=== PATIENT | female | born 1955 | race African-American/Black ===

== ENCOUNTER 2019-02-07 10:37 | Observation (INO) | payer MEDICARE, MEDICAID ==
[~2019-02-07] VITALS: Ht 157.5 cm; Wt 86.3 kg
[~2019-02-07 10:37] MED LIST: ASPIRIN325 MG OR; GENTAMICIN0.31 OP; LISINOP/HCTZ1 TA1 OR; LISINOP/HCTZ1 TA1 PO; LISINOP/HCTZ1 TA2 PO; METOPROL TAR25 MG PO; VASERETIC1 TAB OR; [UNRECOGNIZED DRUG - OTHER]
--- NOTE | 2019-02-07 10:45 | NUR ---
PT TO ROOM VIA EMS
[2019-02-07] MEDS ORDERED: NORVASC5 M1 PO (10:54)
[2019-02-07] MEDS ORDERED: HYDROCHLOROTH12.5 MG PO (10:56)
[2019-02-07] MEDS ORDERED: LIPITOR20 M1 PO (10:57)
[2019-02-07] MEDS ORDERED: BAYER ASPIRIN E81 MG PO (10:57)
[2019-02-07] MEDS ORDERED: LISI20TA5 PO (10:58)
--- NOTE | 2019-02-07 11:03 | NUR ---
PT RESTING ON STRETCHER; NO S/S OF DISTRESS NOTED; PT DENIES CP, SOB, OR ANY COMPLAINTS; MONITORING DEVICES APPLIED; RHYTHM READING SB IN THE 40s; MD AWARE; PT DENIES ANY NEEDS AT THIS TIME; PT AOX3; DENIES RECENT ILLNESS OR CHANGE IN MEDICATIONS RECENTLY; WAS VISITING DR CROW AT [facility] TODAY FOR LAB RESULTS FOR [facility]; CALL LIGHT WITHIN REACH; WILL CONTINUE TO MONITOR
[2019-02-07 11:20] LABS: HEMATOCRIT 41.7 % (37.0-47.0); HEMOGLOBIN 13.2 g/dl (12.0-16.0); IMMATURE GRANULOCYTES 0.2 % (0.0-5.0); MEAN CELL VOLUME 93.9 fL CALC (80.0-100.0); MEAN CORPUSCULAR HGB 29.7 pG CALC (26.0-32.0); MEAN CORPUSCULAR HGB CONC 31.7 g/L CALC (32.0-36.0); NEUT# 1.4 thou/uL (2.00-7.15); RED BLOOD COUNT 4.44 mill/uL (4.20-5.60); RED CELL DISTRI WIDTH 13.2 % (11.5-15.5)
[2019-02-07 11:24] LABS: ANION GAP 14 (6-22 (CALC)); BUN 17 mg/dL (8-23); BUN/CREATININE RATIO 28 (12-20 (CALC)); CARBON DIOXIDE 30 mmol/l (22-30); CHLORIDE 99 mmol/l (95-108); CREATININE 0.6 mg/dL (0.5-1.0); GFR > 60 ML/MIN (>=60 (CALC)); GFR FOR AFR.AMER. > 60 ML/MIN (>=60 (CALC)); SODIUM 140 mmol/l (137-146)
--- NOTE | 2019-02-07 12:01 | NUR ---
PT RESTING ON STRETCHER; NO S/S OF DISTRESS NOTED; VSS; PT DENIES ANY CP, OR SOB; PT UPDATED ON POC; MEDICATED PER MAR; PT TOLERATING WELL; HR CONTINUES SB 40s; MD AWARE CALL LIGHT WITHIN REACH WILL CONTINUE TO MONITOR
--- NOTE | 2019-02-07 12:49 | NUR ---
PT RESTING ON STRETCHER; NO S/S OF DISTRESS NOTED; CONTINUED SB; PT ASYMPTOMATIC; IV KCL INFUSING; PT TOLERATING WELL; DENIES ANY NEEDS AT THIS TIME; WILL CONTINUE TO MONITOR
--- NOTE | 2019-02-07 14:18 | NUR ---
REPORT CALLED TO Anita ALLEN ON [facility]
--- NOTE | 2019-02-07 14:30 | NUR ---
PT TRANSPORTED TO [facility] VIA STRETCHER. PT TOLERATED TRANSFER WELL
--- NOTE | 2019-02-07 14:31 | NUR ---
RECEIVED FROM ER VIA STRETCHER INTO ROOM 261. ADMISSION WEIGHT ON STANDING SCALE 190.4#. ORIENTED TO SURROUNDINGS. CALL NAVARRO IN PLACE.
--- NOTE | 2019-02-07 14:45 | NUR ---
RESTING IN BED. DENIES ANY PAIN OR DISCOMFORTS. ADMISSION ASSESSMENT COMPLETED. VSS. AFEBRILE. RESP NO-LABORED, LUNGS CLEAR THROUGHOUT. SALINE LOCK IN RAC AND LH BOTH SITES BENIGN. PLACED ON APPLICATIONS ADMINISTRATOR. DISCUSSED PLAN OF CARE. NO NEEDS IDENTIFIED AT THIS TIME.
[2019-02-07 14:47] VITALS: BP 139/49
--- NOTE | 2019-02-07 19:02 | NUR ---
REPORT RECEIVED FROM HERBERTH ARZATE. PT RESTING IN BED, NO S/S OF DISTRESS AT THIS TIME. SAFETY PRECAUTIONS IN PLACE. WILL CONTINUE TO MONITOR.
[2019-02-07 19:12] VITALS: BP 119/66
--- NOTE | 2019-02-07 20:20 | NUR ---
PT RESTING IN BED. ALERT AND ORIENTED. RESPIRATIONS EVEN AND UNLABORED ON RA, LUNGS SOUND CLEAR. PEDAL PULSES STRONG. PT DENIES ANY PAIN OR DISCOMFORT AT THIS TIME. TELE IN PLACE. # 20 RAC APPEARS HEALTHY AND PATENT. PT ENCOURAGED TO USE CALL NAVARRO IF ANY NEEDS SHOULD ARISE, CALL NAVARRO WITHIN REACH. WILL CONTINUE TO MONITOR.
[2019-02-07 23:56] VITALS: BP 106/58
--- NOTE | 2019-02-08 00:10 | NUR ---
PT RESTING IN BED. TELE IN PLACE. NO S/S OF DISTRESS AT THIS TIME. CALL NAVARRO WITHIN REACH. WILL CONTINUE TO MONITOR.
--- NOTE | 2019-02-08 04:25 | NUR ---
PT RESTING IN BED. TELE IN PLACE. PT DENIES ANY NEEDS AT THIS TIME. CALL NAVARRO WITHIN REACH GABBY CONTINUE TO MONITOR
[2019-02-08 04:32] VITALS: BP 125/61
[2019-02-08 05:08] LABS: HEMATOCRIT 38.6 % (37.0-47.0); IMMATURE GRANULOCYTES 0.2 % (0.0-5.0); MEAN CELL VOLUME 94.6 fL CALC (80.0-100.0); MEAN CORPUSCULAR HGB 29.4 pG CALC (26.0-32.0); MEAN CORPUSCULAR HGB CONC 31.1 g/L CALC (32.0-36.0); NEUT# 1.71 thou/uL (2.00-7.15); RED BLOOD COUNT 4.08 mill/uL (4.20-5.60); RED CELL DISTRI WIDTH 13.3 % (11.5-15.5)
[2019-02-08 05:31] LABS: ANION GAP 13 (6-22 (CALC)); BUN 14 mg/dL (8-23); BUN/CREATININE RATIO 26 (12-20 (CALC)); CARBON DIOXIDE 25 mmol/l (22-30); CHLORIDE 104 mmol/l (95-108); CREATININE 0.5 mg/dL (0.5-1.0); GFR > 60 ML/MIN (>=60 (CALC)); GFR FOR AFR.AMER. > 60 ML/MIN (>=60 (CALC)); MAGNESIUM 2.3 mg/dL (1.6-2.3); POTASSIUM 3.3 mmol/l (3.5-5.1); SODIUM 139 mmol/l (137-146)
[2019-02-08 07:15] VITALS: BP 145/57
--- NOTE | 2019-02-08 07:15 | NUR ---
PT RESTING IN BED AWKAE AND WATCHING TV. PT IS ALERT AND ORIENTED X3. SHIFT ASSESSMENT COMPLETED AT THIS TIME. IV PATENT X2. CALL LIGHT IN REACH. WILL CONTINUE TO MONITOR.
[2019-02-08 11:04] VITALS: BP 139/66
--- NOTE | 2019-02-08 12:00 | NUR ---
PT SITTING UP IN BED WATCHING TV. RESP ARE EVEN AND UNLABORED. NO DISTRESS NOTED. CALL LIGHT IN REACH. WILL CONTINUE TO MONITOR.
--- NOTE | 2019-02-08 16:00 | NUR ---
PT RESTING IN BED VISITING WITH VISITORS. RESP ARE EVEN AND UNLABORED. NO DISTRESS NOTED. CALL LIGHT IN REACH. WILL CONTINUE TO MONIOTR.
[2019-02-08 16:09] VITALS: BP 147/92
[2019-02-08] MEDS ORDERED: LOVASTATIN10 MG PO (16:40)
[2019-02-08] MEDS ORDERED: LISINOP/HCTZ1 TA2 PO (16:43)
[2019-02-08] MEDS ORDERED: LISINOPRIL20 M1 PO (16:43)
--- NOTE | 2019-02-08 17:01 | NUR ---
IV site discontinued, cath intact. No edema , no redness, voices no discomfort.
--- NOTE | 2019-02-08 17:05 | NUR ---
DISCHARGE INSTRUCTIONS REVIEWED WITH PATIENT. PATIENT VERBALIZED UNDERSTANDIGN
--- NOTE | 2019-02-08 17:11 | NUR ---
Discharge instructions given. Patient verbalizes understanding of same. Discharged in stable condition via Wheelchair to Home with family. All belongings sent with pt.
== END 2019-02-08 17:06 | disposition home or self-care (01) ==
LOC: ED 10:37 → ED-I 11:22 → ED 12:01 → MS2 12:03
PROVIDERS: Family Medicine; Nurse Practitioner Family; ADMIT Internal Medicine; ATTEND Internal Medicine
DX: R00.1 Bradycardia, unspecified (principal); I10 Essential (primary) hypertension; E87.6 Hypokalemia; E78.5 Hyperlipidemia, unspecified; Z87.891 Personal history of nicotine dependence
CPT/HCPCS: G0378; J3475